=== PATIENT | male | born 1945 | race Caucasian/White ===

== ENCOUNTER 2017-10-13 10:49 | Day surgery (SDC) | payer MEDICARE ==
[2017-10-12 11:26] VITALS: BMI 20.2
[~2017-10-13 10:49] MED LIST: Cyclopentolate 1% Opth Drop 2 ML BOT FS SCH; Phenylephrine 2.5% Ophth Soln 5 ML BOT FS SCH
[2017-10-13] MEDS ORDERED: Phenylephrine 2.5% Ophth Soln 5 ML BOT ONE (11:28)
[2017-10-13] MEDS ORDERED: Cyclopentolate 1% Opth Drop 2 ML BOT ONE (11:28)
[2017-10-13] MEDS ORDERED: PHENYLEPHRINE-NS 100 MCG/ML 10 ML SYRINGE ONE (13:05)
[2017-10-13] MEDS ORDERED: Ondansetron HCl/PF 4 MG/2 ML Vial ONE (13:05)
[2017-10-13] MEDS ORDERED: ePHEDrine/0.9% NaCl/PF SYRINGE 50 mg/10 ml ONE (13:05)
[2017-10-13] MEDS ORDERED: Fentanyl 100 MCG/2 ML VIAL ONE (14:41)
[2017-10-13] MEDS ORDERED: Midazolam HCl 2 mg/2 ml Vial ONE (14:41)
--- NOTE | 2017-10-14 02:33 | OP ---
DATE OF PROCEDURE: 10/13/2017 PREOPERATIVE DIAGNOSIS: Dislocated intraocular lens, left eye. POSTOPERATIVE DIAGNOSIS: Dislocated intraocular lens, left eye. PROCEDURE: Intraocular lens exchange and vitrectomy, left eye. SURGEON: Joel Simons M.D. ANESTHESIA: General endotracheal. COMPLICATIONS: None. PROCEDURE IN DETAIL: The patient was identified in the preoperative holding area. Appropriate infor med consent for the planned surgical procedure on the left eye had been obtained. The patient was tr ansported to the operative suite where appropriate cardiopulmonary monitoring was established. Local anesthesia was obtained. General endotracheal anesthesia was initiated. Local anesthesia was obtai kassy using retrobulbar lock. Trocars were placed supratemporally, inferotemporally, and supranasally. Light pipe and vitreous cutter were inserted into the eye. The intraocular lens was identified kaye ging inferiorly. Residual vitreous was removed using the vitreous cutter. A superior nasal scleral tunnel incision 3.5 mm in size was created. The IOL was reflected into the anterior chamber using vi treous cutter and the light pipe. It was grasped with an end grasping forceps and was pulled from th e eye after having been cut in half with scissors. A 20 diopter [id number] lens was folded and inserted into the eye and the haptics were externalized 1.5 mm posterior to the limbus using the techniq ue. The ends were flanged using cautery and reposited back into the sclera. The lens was noted to b e stable and centered. Scleral tunnel incision was closed with 10-0 nylon suture. Vitrectomy ports were closed with 6-0 plain gut suture. Conjunctiva was closed with 6-0 plain gut suture. Retrobulba r Kenalog and subconjunctival Ancef were placed. Atropine and antibiotic ointment were placed, and t he eye was patched and shielded. The patient was taken to the postoperative recovery unit in good co ndition having suffered no immediate perioperative complications. DISCHARGE INSTRUCTIONS: The patient was instructed to keep patch and shield on, avoid lifting or byron ding, and follow up in the morning with Dr. Simons.
== END 2017-10-13 17:32 | disposition home or self-care (01) ==
LOC: SDC 10:49
PROVIDERS: ATTEND Ophthalmology Retina Specialist
PROC: 08PK3JZ Removal of Synthetic Substitute from Left Lens, Percutaneous Approach (ICD-10-PCS; principal; 2017-10-13)
PROC: 08RK3JZ Replacement of Left Lens with Synthetic Substitute, Percutaneous Approach (ICD-10-PCS; 2017-10-13)
PROC: 08T53ZZ Resection of Left Vitreous, Percutaneous Approach (ICD-10-PCS; 2017-10-13)
DX: T85.22XA Displacement of intraocular lens, initial encounter (principal); Z79.899 Other long term (current) drug therapy; Z96.1 Presence of intraocular lens; Z98.52 Vasectomy status; Z98.890 Other specified postprocedural states
CPT/HCPCS: 66986; 67036; C1780; J2250; J3010

== ENCOUNTER 2019-10-21 18:25 | Emergency (ER) | payer MEDICARE ==
[2019-10-21 20:27] LABS: Bilirubin Negative (Negative); Blood, Urine Negative (Negative); Clarity Clear (Clear); Glucose, Urine (Dipstick) Normal (Negative); Leukocyte Negative Leu/uL (Negative); Nitrite Negative (Negative); Protein, Urine (Dipstick) Negative (Neg-Trace); Urobilinogen Normal mg/dL (Less than 2)
[2019-10-21 20:30] LABS: #Eosinphils 0.1 thou/uL (0.0-0.7); #Lymphocytes 1.2 thou/uL (1.20-3.40); #Monocytes 0.5 thou/uL (0.11-0.59); #Neutrophils 3.2 thou/uL (1.40-6.50); %Basophils 0.4 % (0.0-1.0); %Eosinophils 2.1 % (0.0-10.0); %Lymphocytes 23.6 % (21.0-51.0); %Monocytes 10.3 % (0.0-10.0); %Neutrophils 63.6 % (42.0-75.0); Hemoglobin 13.2 g/dL (14.0-18.0); Mean Corpuscular HGB CONC 33.3 g/dL (32.0-36.0); Mean Corpuscular Hemoglobin 31.7 pg (27.0-31.0); Mean Platelet Volume 7.6 fL (7.4-10.4); Platelet Count 230 thou/uL (130-400); Red Blood Cell (RBC) Count 4.15 mill/uL (4.70-6.10)
[2019-10-21 20:58] LABS: ALT (SGPT) 17 U/L (8-55); AST (SGOT) 22 U/L (5-34); Albumin 4.3 g/dL (3.4-4.8); Alkaline Phosphatase 61 U/L (40-110); Anion Gap 13 mmol/L (10-20); BUN (Urea Nitrogen) 16 mg/dL (8.4-25.7); Bilirubin, Total 0.4 mg/dL (0.2-1.2); Calc. Creatinine Clearance 0 mL/min (70-130); Carbon Dioxide 25 mmol/L (23-31); Chloride 105 mmol/L (98-107); Estimated GFR-MDRD 82; Globulin 2.9 g/dL (2.4-3.5); Glucose 87 mg/dL (83-110); Potassium 3.7 mmol/L (3.5-5.1); Protein, Total 7.2 g/dL (5.8-8.1); Sodium 139 mmol/L (136-145)
== END 2019-10-21 21:50 | disposition home or self-care (01) ==
LOC: ERS 18:25
DX: R33.9 Retention of urine, unspecified (principal); N40.0 Benign prostatic hyperplasia without lower urinary tract symptoms; I10 Essential (primary) hypertension; E03.9 Hypothyroidism, unspecified; Z79.82 Long term (current) use of aspirin; Z79.899 Other long term (current) drug therapy
CPT/HCPCS: 36415; 51702; 80053; 81003; 85025; 87086

== ENCOUNTER 2020-09-03 13:59 | Emergency (ER) | payer MEDICARE ==
[2020-09-04 00:22] LABS: SARS-CoV-2 MS2 Positive; SARS-CoV-2 N Gene Negative; SARS-CoV-2 S Gene Negative; SARS-CoV-2 by NAA Not Detected (NotDetected); SARS-CoV-2 orf1ab Negative
== END 2020-09-03 15:04 | disposition home or self-care (01) ==
LOC: ERS 13:59
DX: J06.9 Acute upper respiratory infection, unspecified (principal); Z20.828 Contact with and (suspected) exposure to other viral communicable diseases; I10 Essential (primary) hypertension; N40.0 Benign prostatic hyperplasia without lower urinary tract symptoms; Z79.82 Long term (current) use of aspirin; Z79.899 Other long term (current) drug therapy
CPT/HCPCS: 99283; U0003; 87635

== ENCOUNTER 2020-11-07 13:00 | Outpatient (CLI) | payer MEDICARE ==
[2020-11-07 14:26] LABS: Bilirubin Neg (Negative); Blood, Urine Negative (Negative); Clarity Clear (Clear); Glucose, Urine (Dipstick) Normal (Negative); Ketone, Urine Negative (Negative); Leukocyte Negative (Negative); Nitrite Negative (Negative); Protein, Urine (Dipstick) Negative (Neg-Trace); Urobilinogen Normal mg/dL (Less than 2)
[2020-11-07 14:33] LABS: Hemoglobin 13.4 g/dL (13.5-17.5); Mean Corpuscular HGB CONC 32.2 g/dL (32.0-36.0); Mean Corpuscular Hemoglobin 31.1 pg (27.0-33.0); Mean Corpuscular Volume 96.5 fl (81.2-95.1); Mean Platelet Volume 10.7 fl (7.4-10.4); Platelet Count 234 10x3/uL (150-450); Red Blood Cell (RBC) Count 4.31 10x6/uL (4.32-5.72); White Blood Cell (WBC) Count 5.3 10x3/uL (3.5-10.5)
[2020-11-07 14:43] LABS: PTT 26.5 sec (22.0-33.0); Prothrombin Time 10.7 sec (9.5-12.1)
[2020-11-07 14:56] LABS: Bacteria/HPF None Seen HPF (None Seen); RBC/HPF 0-3 HPF (0-3); Squamous Epithelial 0-3 HPF (0-3); WBC/HPF 0-3 HPF (0-3)
[2020-11-07 15:28] LABS: Anion Gap 12 mmol/L (10-20); BUN (Urea Nitrogen) 19 mg/dL (8.4-25.7); Calc. Creatinine Clearance 0 mL/min (70-130); Calcium 9.4 mg/dL (7.8-10.44); Carbon Dioxide 27 mmol/L (23-31); Chloride 107 mmol/L (98-107); Glucose 95 mg/dL (83-110); Sodium 141 mmol/L (136-145)
[2020-11-08 02:22] LABS: SARS-CoV-2 PCR by NAA Not Detected (NotDetected)
== END 2020-11-07 13:01 | disposition home or self-care (01) ==
LOC: LABBT 13:00
PROVIDERS: ATTEND Urology
DX: Z01.818 Encounter for other preprocedural examination (principal); Z01.812 Encounter for preprocedural laboratory examination; R97.20 Elevated prostate specific antigen [PSA]; R41.3 Other amnesia; R35.1 Nocturia; N40.1 Benign prostatic hyperplasia with lower urinary tract symptoms; I65.22 Occlusion and stenosis of left carotid artery; Z20.822 Contact with and (suspected) exposure to COVID-19
CPT/HCPCS: 80048; 81001; 85027; 85610; 85730; 87086; 93005; U0003; U0005; 87635; 93010

== ENCOUNTER 2020-11-12 05:44 | Day surgery (SDC) | payer MEDICARE ==
[2020-11-11 11:03] VITALS: BMI 20.3
[2020-11-12] MEDS ORDERED: Levofloxacin 500 mg/D5W 100 ml Premix Bag ONE (07:07)
[2020-11-12] MEDS ORDERED: PROPOFOL 200 MG/20 ML VIAL ONE (09:40)
[2020-11-12] MEDS ORDERED: Ondansetron PF 4 MG/2 ML Vial ONE (09:40)
[2020-11-12] MEDS ORDERED: Lidocaine 1% PF 5 ML VIAL ONE (09:40)
[2020-11-12] MEDS ORDERED: Phenazopyridine HCl 100 MG TAB ONE (11:29)
== END 2020-11-12 13:55 | disposition home or self-care (01) ==
LOC: SDC 05:44
PROVIDERS: ATTEND Urology
PROC: 0T7D8DZ Dilation of Urethra with Intraluminal Device, Via Natural or Artificial Opening Endoscopic (ICD-10-PCS; principal; 2020-11-12)
DX: N40.1 Benign prostatic hyperplasia with lower urinary tract symptoms (principal); I65.22 Occlusion and stenosis of left carotid artery; G20 Parkinson's disease; R41.3 Other amnesia; Z79.82 Long term (current) use of aspirin; Z79.899 Other long term (current) drug therapy
CPT/HCPCS: 74018; C9740; J1956; J2405; J2704; L8699

== ENCOUNTER 2020-12-02 10:14 | Outpatient (CLI) | payer MEDICARE | END 2020-12-02 10:15 | disposition home or self-care (01) | LOC: BICULT 10:14 | PROVIDERS: ATTEND Urology | DX: N28.89 Other specified disorders of kidney and ureter (principal) | CPT/HCPCS: 74018; 76770 ==

== ENCOUNTER 2024-07-03 17:49 | Emergency (ER) | payer MEDICARE ==
[2024-07-03] MEDS ORDERED: Boostrix 0.5 ML (Tdap) VIAL (>/=7 yrs of age) ONE (19:14)
== END 2024-07-03 19:37 | disposition home or self-care (01) ==
LOC: ERS 17:49
DX: S90.01XA Contusion of right ankle, initial encounter (principal); S50.312A Abrasion of left elbow, initial encounter; S60.512A Abrasion of left hand, initial encounter; S80.922A Unspecified superficial injury of left lower leg, initial encounter; I10 Essential (primary) hypertension; W22.8XXA Striking against or struck by other objects, initial encounter; Y93.02 Activity, running
CPT/HCPCS: 72170; 90471; 90715